=== PATIENT | female | born 1960 | race Caucasian/White ===

== ENCOUNTER 2019-12-19 10:25 | Outpatient (CLI) | payer MEDICARE, MEDICAID, SELFPAY ==
--- NOTE | 2019-12-19 10:36 | MM_ITS ---
WS: [id number] BILATERAL DIGITAL SCREENING MAMMOGRAPHY WITH CAD CLINICAL INFORMATION: SCREENING HISTORY: Screening mammogram. No current complaints. COMPARISON: and October 26, 2018 TECHNIQUE: Bilateral CC and MLO views. FINDINGS: The breasts are composed of heterogeneous fibroglandular density tissue, which can limit the detectio n of small underlying mass lesions. No suspicious mass, asymmetry, calcifications, or architectural d istortion. No evidence of malignancy. MM/[id number] IMPRESSION: BI-RADS: 1-Negative FOLLOW UP: 1 Year Follow-up Recommend return to annual screening mammography.
== END 2019-12-19 10:26 | disposition home or self-care (01) ==
LOC: RADSHAW 10:33
PROVIDERS: PCP Family Medicine; Visit Provider Family Medicine
DX: Z12.31 Encounter for screening mammogram for malignant neoplasm of breast (principal)
CPT/HCPCS: 77067

== ENCOUNTER 2020-01-19 21:20 | Emergency (ER) | payer MEDICARE, MEDICAID, SELFPAY ==
[2020-01-19 21:39] VITALS: BP 115/81; PULSE 72; RESP 16; TEMP 36.8; O2SAT 96; BMI 29.9
[2020-01-19 22:05] LABS: Bilirubin Urine Neg (NEGATIVE); Blood Urine Neg (Negative); Glucose Urine UA Norm (Normal); Ketones Urine Negative (Negative); Leukocyte Esterase Urine Negative (Negative); Nitrate Urine Negative (Negative); Protein Urine Neg (Negative); Specific Gravity, Urine 1.005 (1.005-1.030); Sulfosalicylic Acid Urine Negative (Negative); Urine Appearance Clear (CLEAR); Urine Color Yellow (Yellow); Urobilinogen Urine Norm (Negative); pH Urine 8 (5-7)
[2020-01-19 22:07] LABS: Add Urine Culture? No; Bacteria Urine TRACE; WBC Urine 0-4 /hpf (0-5)
[2020-01-19 22:17] LABS: Basophils # 0.1 10^3/uL (0.0-0.1); Basophils % 0.7 %; Eosinophils # 0.1 10^3/uL (0.0-0.8); Eosinophils % 1.5 %; Hematocrit 43.7 % (37.0-47.0); Hemoglobin 13.6 g/dL (11.5-15.3); Lymphocytes # 2.2 10^3/uL (0.8-4.8); Lymphocytes % 29.3 %; Mean Corpuscular HGB Conc 31.1 g/dL (30.0-36.0); Mean Corpuscular Hemoglobin 28.8 pg (28.0-34.0); Mean Corpuscular Volume 92.4 fL (81-99); Mean Platelet Volume 10.4 fL (7.4-10.4); Monocytes # 0.7 10^3/uL (0.2-0.9); Neutrophils # 4.35 10^3/uL (1.8-7.7); Neutrophils % 59.1 %; Nucleated Red Blood Cells % 0 %; Platelet Count 256 10^3/cmm (130-400); Red Blood Count 4.73 10^6/uL (4.1-5.3); White Blood Count 7.4 10^3/uL (4.0-10.0)
[2020-01-19 22:34] LABS: Alanine Aminotransferase 7 U/L (0-33); Albumin Level 4.2 g/dL (3.5-5.2); Alkaline Phosphatase 95 IU/L (35-105); Anion Gap 13.1 (5-19); Aspartate Amino Transferase 15 U/L (0-32); Blood Urea Nitrogen 12 mg/dL (6-20); Calcium 9.6 mg/dL (8.5-10.5); Carbon Dioxide 26 mmol/L (22-29); Chloride 104 mmol/L (98-107); Globulin 2.5 g/dL (1.3-4.6); Glucose 112 mg/dL (65-115); Lipase 31 U/L (13-60); Osmolality Calculated 285 mOsm/kg (285-295); Potassium 4.1 mmol/L (3.5-5.1); Sodium 139 mmol/L (136-145); Total Bilirubin 0.2 mg/dL (0.15-1.2); Total Protein 6.7 g/dL (6.6-8.7)
[2020-01-19 22:38] LABS: HCG, Serum Qual Negative (Negative)
--- NOTE | 2020-01-19 23:03 | PC.NURSE ---
SPEAKING WITH PT IN LOBBY. PT IS IN NAD.
== END 2020-01-19 23:44 ==
LOC: ER 21:42
PROVIDERS: Emergency Medicine; Emergency Provider Physician Assistant; PCP Family Medicine
DX: Z53.21 Procedure and treatment not carried out due to patient leaving prior to being seen by health care provider (principal)
CPT/HCPCS: 80053; 81001; 83690; 84703; 85025; 99281; 99282

== ENCOUNTER 2020-01-20 13:42 | Emergency (ER) | payer MEDICARE, MEDICAID, SELFPAY ==
[2020-01-20 13:51] VITALS: BP 116/73; PULSE 96; RESP 18; TEMP 36.6; O2SAT 96; BMI 29.9
== END 2020-01-20 15:08 | disposition left against medical advice (07) ==
LOC: ER 13:53
PROVIDERS: Emergency Provider Family Medicine; PCP Family Medicine
DX: Z53.21 Procedure and treatment not carried out due to patient leaving prior to being seen by health care provider (principal)
CPT/HCPCS: 99281

== ENCOUNTER 2020-05-24 12:06 | Outpatient (CLI) | payer MEDICARE, MEDICAID, SELFPAY ==
--- NOTE | 2020-05-24 12:31 | XR_ITS ---
WS: [id number] XR chest 2V* [id number] REASON FOR EXAM: COUGH FINDINGS: Chest is unchanged compared to 09/23/2017. The heart and the mediastinum are within normal limits. Calcified granulomatous changes in both hemithoraces. No active pulmonary parenchymal or pleural disease. Mild to moderate degenerative changes in the mid and lower thoracic spine and both shoulder joints. XR/XR chest 2V* [id number] IMPRESSION: No acute chest abnormality.
== END 2020-05-24 12:07 | disposition home or self-care (01) ==
PROVIDERS: PCP Nurse Practitioner Family; Visit Provider Nurse Practitioner Family
DX: R05 Cough (principal)
CPT/HCPCS: 71046

== ENCOUNTER 2020-06-30 09:11 | Emergency (ER) | payer MEDICARE, MEDICAID, SELFPAY ==
[2020-06-30 09:25] VITALS: BP 159/44; PULSE 82; RESP 18; TEMP 36.5; O2SAT 99; BMI 29.9
[2020-06-30 09:30] VITALS: BP 117/75; RESP 80; O2SAT 95
--- NOTE | 2020-06-30 09:37 | W.ED.URI ---
HPI - URI/Sore Throat General: Chief Complaint: Upper Respiratory Infection Stated Complaint: head congestion, hard to breath Time Seen by Provider: 06/30/20 09:29 Source: patient Limitations: no limitations History of Present Illness: HPI Narrative: Patient with cough and congestion and sinus pain and pressure x1 day. Has a history of recurrent bronchitis and sinusitis. Has already had COVID-19 back in March. No fever or shortness of breath. MD elicited complaint: cough, sore throat, rhinorrhea, nasal congestion and sinus pain Associated symptoms: Reports nasal congestion; Deny abdominal pain, chills, chest pain, diarrhea, fever(s), headache(s), nausea or vomiting Review of Systems General: Reports: 10 or more systems reviewed and unremarkable except in HPI and below Const: Denies: fever(s), chills or body aches Eyes: Denies: change in vision ENMT: Reports: throat pain, nasal congestion and post nasal drip; Denies: enlarged tonsils or odynophagia Card: Denies: chest pain Resp: Reports: non-productive cough; Denies: dyspnea GI: Denies: abdominal pain, nausea, vomiting or diarrhea : Denies: flank pain or difficulty voiding Musc: Denies: neck pain or back pain Skin/Breast: Denies: rash Neuro: Denies: headache(s) Psych: Denies: anxiety PFSH ED PFSH: Social History Smoking and tobacco status: current every day smoker Physical Exam Const: COMMON NORMALS: no acute distress, average body habitus, patient oriented x3, no limitations, healthy appearing, alert and well nourished HENMT: COMMON NORMALS: TM's normal bilaterally and Normal external nose present HEAD & SCALP: normal to inspection FACE & SINUS: Facial tenderness on exam of face and sinuses NOSE: Normal external nose present TYMPANIC MEMBRANE: TM's normal bilaterally Eye: COMMON NORMALS: Equal, round and reactive pupils present, EOMs intact bilaterally, conjunctivae normal, no scleral icterus, no papilledema, normal visual jaramillo by confrontation and fundi normal bilaterally CONJUNCTIVA: Yes conjunctivae normal PUPIL: Yes Equal, round and reactive pupils present DIRECT OPHTHALMOSCOPY: Yes no papilledema and Yes fundi normal bilaterally Neck/C-Spine: COMMON NORMALS: full ROM, no lymphadenopathy, supple, no meningeal signs, Thyroid normal and No carotid bruits THYROID: Thyroid normal Chest: COMMONS NORMALS: normal inspection of the chest, normal palpation of entire chest wall, normal inspection of the breasts and normal palpation of the breasts Breast/axilla inspection: Yes normal inspection of the breasts BREAST/AXILLA PALPATION: Yes normal palpation of the breasts Resp: COMMON NORMALS: normal respiratory effort, No retractions, No use of accessory muscles, clear to auscultation bilaterally and percussion normal AUSCULTATION: clear to auscultation bilaterally PERCUSSION: percussion normal GI: COMMON NORMALS: Normal to inspection, nondistended, normoactive bowel sounds present, Soft to palpation, non-tender, No hepatosplenomegaly present, no masses and no bruits PALPATION: Yes Soft to palpation and Yes No hepatosplenomegaly present Neuro: COMMON NORMALS: patient oriented x3 SENSORIUM/ORIENTATION: Yes alert MENINGEAL SIGNS: Yes no meningeal signs Course Vital Signs: Vital signs: Vital Signs Temperature 97.7 F 06/30/20 09:25 Pulse Rate 82 06/30/20 09:25 Respiratory Rate 80 H 06/30/20 09:30 Blood Pressure 117/75 06/30/20 09:30 Pulse Oximetry 95 06/30/20 09:30 MDM - URI/Sore Throat MDM Narrative: Medical decision making narrative: Patient with URI. Will treat with prednisone and azithromycin. Does not appear to be septic or dehydrated. No respiratory distress. Discharge Plan Discharge Patient Disposition: Home Clinical Impression: Upper respiratory infection Qualifiers: URI type: unspecified URI Qualified Code(s): J06.9 - Acute upper respiratory infection, unspecified Condition: Stable Prescriptions: New azithromycin 250 mg tablet See Rx Instructions .ROUTE .COMPLEX Qty: 6 RF: 0 prednisone 20 mg tablet 20 mg PO BID 5 Days Qty: 10 RF: 0 No Action levothyroxine 75 mcg tablet 75 mcg PO DAILY RF: 0 omeprazole 10 mg capsule,delayed release(DR/EC) 10 mg PO DAILY RF: 0 doxycycline hyclate 100 mg capsule 100 mg PO BID 10 Days Qty: 20 RF: 0 Discharge Orders: Discharge ED (Routine); Ordered 06/30/20 Ordered By: Kirk Traore Referrals: Sandhya,Marcella R, PRODUCTION MACHINE TENDER [Primary Care Provider] - Coding Level of Care Code ED Potato Peeling Machine Operator for Chg Fwd Exam Detailed
[2020-06-30 09:51] VITALS: BP 110/79; PULSE 84; RESP 17; O2SAT 97
== END 2020-06-30 09:51 | disposition home or self-care (01) ==
PROVIDERS: Emergency Provider Emergency Medicine; PCP Nurse Practitioner Family
DX: J06.9 Acute upper respiratory infection, unspecified (principal); F17.200 Nicotine dependence, unspecified, uncomplicated; Z86.16 Personal history of COVID-19
CPT/HCPCS: 12345; 99281; 99282; 99283

== ENCOUNTER → 2020-08-05 10:51 | Outpatient (BNVA) | payer MEDICARE, MEDICAID, SELFPAY | PROVIDERS: PCP Nurse Practitioner Family; Visit Provider Nurse Practitioner | DX: J02.9 Acute pharyngitis, unspecified (principal); J06.9 Acute upper respiratory infection, unspecified; Z68.34 Body mass index [BMI] 34.0-34.9, adult; F17.210 Nicotine dependence, cigarettes, uncomplicated | CPT/HCPCS: 87071; 87880 ==

== ENCOUNTER 2020-12-19 07:31 | Outpatient (CLI) | payer MEDICARE, MEDICAID, SELFPAY ==
--- NOTE | 2020-12-19 07:38 | MM_ITS ---
WS: [id number] BILATERAL SCREENING DIGITAL MAMMOGRAM WITH CAD HISTORY: SCREENING COMPARISON: 12/19/2019 and 10/26/2018 Bilateral CC and MLO views submitted. Computer aided detection analyzed. Breast composition: There are scattered areas of fibroglandular density. No suspicious masses, microc alcifications or architectural distortion. MM/[place] [id number] IMPRESSION: BI-RADS: 1-Negative FOLLOW UP: 1 Year Follow-up
== END 2020-12-19 07:32 | disposition home or self-care (01) ==
LOC: RADSHAW 07:36
PROVIDERS: PCP Nurse Practitioner Family; Visit Provider Nurse Practitioner Family
DX: Z12.31 Encounter for screening mammogram for malignant neoplasm of breast (principal)
CPT/HCPCS: 77067

== ENCOUNTER 2021-12-19 08:09 | Outpatient (CLI) | payer MEDICARE, MEDICAID, SELFPAY ==
--- NOTE | 2021-12-19 08:20 | MM_ITS ---
WS: [id number] Bilateral screening 3D tomosynthesis digital mammogram, 12/19/2021 Clinical Data: SCREENING Comparison: 12/19/2020 12/19/2019, 11/18/2018, 10/26/2018, 10/25/2017, 10/03/2013, 09/28/2012.. Findings: The breast parenchymal pattern shows fibroglandular tissue. No spiculated masses or clustered calcifi cations are seen. There are no secondary signs of carcinoma. There are lymph nodes in both axilla. MM/[place] [id number] Impression: 1. Negative bilateral mammogram unchanged. 2. Recommend annual screening mammograms. BIRADS: 1-Negative FOLLOW UP: 1 Year Follow-up The CAD construction checker was used.
== END 2021-12-19 08:10 | disposition home or self-care (01) ==
LOC: RADSHAW 08:10
PROVIDERS: PCP Nurse Practitioner Family; Visit Provider Nurse Practitioner Family
DX: Z12.31 Encounter for screening mammogram for malignant neoplasm of breast (principal)
CPT/HCPCS: 77063; 77067

== ENCOUNTER 2021-12-20 10:47 | Emergency (ER) | payer MEDICARE, MEDICAID, SELFPAY ==
[2021-12-20 11:02] VITALS: BP 132/84; PULSE 92; RESP 17; O2SAT 97
--- NOTE | 2021-12-20 11:03 | W.ED.ABDPA2 ---
HPI - Abdominal Pain General: Chief Complaint: Back Pain/Injury Stated Complaint: abd pain Time Seen by Provider: 12/20/21 11:03 History of Present Illness: Ms. Wood is a 61-year-old lady with history of GERD and chronic constipation who presents to the emergency department due to back and abdominal pain. Onset of symptoms was approximately 2 days ago without known specific provoking event. Since that time she has had intermittent worsening intensity of mild back pain. She has nausea but no associated vomiting. She denies urinary symptoms. Constipation is baseline with normal bowel movement yesterday morning. She denies fevers, chills, or other evidence of infection. Overall course of symptoms has persisted. No other specific changes in health, exacerbating, or alleviating factors identified. Patient has somewhat odd affect. Patient only reports taking 1 tab of Tylenol and is out of ibuprofen which normally improves symptoms. When discussing potential pain treatments in the ER the patient declined saying she does not want any of that in her body . Onset (ago): day(s) Pain Consistency: intermittent Location: Diffuse Severity: moderate Quality: cramping and aching Exacerbating factors: nothing Relieving factors: nothing Associated Symptoms: Reports nausea Review of Systems General: Reports: 10 or more systems reviewed and unremarkable except in HPI and below GI: Reports: nausea PFSH ED PFSH: Medical History History of gastroesophageal reflux (GERD) Surgical History History of partial hysterectomy Social History Smoking and tobacco status: current every day smoker cigarettes Packs smoked per day: 0.75 Years cigarettes smoked: 41 Alcohol intake: never Physical Exam Const: COMMON NORMALS: alert GENERAL APPEARANCE: cooperative and well developed HENMT: COMMON NORMALS: normocephalic and atraumatic HEAD & SCALP: normocephalic and atraumatic Eye: COMMON NORMALS: conjunctivae normal CONJUNCTIVA: Yes conjunctivae normal SCLERA: sclerae normal Neck/C-Spine: COMMON NORMALS: supple GENERAL: Yes trachea midline Resp: COMMON NORMALS: normal respiratory effort and clear to auscultation bilaterally EFFORT & INSPECTION: Yes able to speak in complete sentences AUSCULTATION: clear to auscultation bilaterally Cardio: COMMON NORMALS: regular rate and regular rhythm RATE: regular rate RHYTHM: regular rhythm GI: COMMON NORMALS: Soft to palpation PALPATION: Yes Soft to palpation, Yes Tenderness to palpation present (GI), No Guarding due to palpation present (GI), No Rigid due to palpation and No Rebound tenderness present Extremity: GENERAL: Yes normal exam except as noted and No edema Neuro: COMMON NORMALS: moves all extremities SENSORIUM/ORIENTATION: Yes alert and No Orientation impaired Psych: COMMON NORMALS: mental status grossly normal and Normal thought process present THOUGHT PROCESS: Normal thought process present Course ED course: - Patient was seen and evaluated by me at bedside - Patient placed on cardiac monitors, IV access obtained - Initial evaluation notable for exam as above - Labs personally interpreted by me - Antiemetic given - Labs notable for no significant electrolyte or metabolic abnormality, mild elevation ALT and alk phos of unclear etiology. No evidence of urinary tract infection. - Imaging notable for no acute inflammatory process of abdomen or pelvis to explain pain. Patient does have constipation as well as some mesenteric edema suggesting chronic inflammatory process. - Discussed case with general surgery as I was unsure of likely follow-up. Plan to follow-up with rheumatology and further referral to surgery if needed however this is not a condition that he has run into before - Upon serial reexamination after treatment the patient was improved - Based on patient history, evaluation, and testing as interpreted the most likely cause of the patient's condition is abdominal pain with constipation and some mesenteric edema with possible chronic inflammatory condition which was discussed with the patient - The results of ED evaluation were discussed with the patient including prescriptions and/or symptomatic cares (if applicable) including appropriate and responsible use, followup plan, and return precautions. The patient verbalized understanding and felt safe for discharge. - Patient discharged in satisfactory condition. Note: Click bubbles or prepopulated jaramillo in note writing are used for assistance with data collection and billing and are inherently more limited than narrative and other text portions of this note. Please use narrative for additional clinical history and defer to narrative/free test for any case of contradictory information. If information appears in only free text or click bubble it should be considered present or absent as reported. Please contact note data analyst report writer for clarifications of clinical information or contradictory information. MDM is a brief summary, contradictory or erroneous seeming information should be clarified and full note should be reviewed. Vital Signs: Vital signs: Vital Signs Pulse Rate 73 07/16/22 13:46 Respiratory Rate 14 12/20/21 13:46 Blood Pressure 118/76 12/20/21 13:46 Pulse Oximetry 96 12/20/21 13:46 Oxygen Delivery Me thod 12/20/21 13:46 MDM - Abdominal Pain Medical Decision Making 61-year-old lady presenting with abdominal pain. No evidence of acute surgical abdomen on exam, patient is nontoxic in appearance. Labs fairly unremarkable. CT with evidence of constipation and some mesenteric edema of uncertain etiology. After treatment with antiemetic patient felt improved and was able to tolerate p.o. intake. Satisfactory for outpatient management. Medical Records I reviewed the patient's medical records. Lab Data I reviewed the patient's lab results. : 12/20/21 11:25 12/20/21 11:25 Labs/Radiology: Radiology Impressions Abdomen/Pelvis CT 12/20/21 12:13 IMPRESSION: 1. Negative for acute inflammatory process in the abdomen or pelvis. 2. Constipation. 3. Several prominent subcentimeter upper abdominal mesenteric lymph nodes with some mesenteric edema suggestive of a chronic inflammatory process such as sclerosing mesenteritis. Laboratory Results WBC 7.0 10^3/uL (4.0-10.0) 12/20/21 11:25 RBC 4.96 10^6/uL (4.1-5.3) 12/20/21 11:25 Hgb 14.8 g/dL (11.5-15.3) 12/20/21 11:25 Hct 44.3 % (37.0-47.0) 12/20/21 11:25 MCV 89.3 fl (81-99) 12/20/21 11:25 MCH 29.8 pg (28.0-34.0) 12/20/21 11:25 MCHC 33.4 g/dL (30.0-36.0) 12/20/21 11:25 RDW 12.7 % (12.1-15.1) 12/20/21 11:25 Plt Count 262 10^3/cmm (130-400) 12/20/21 11:25 MPV 11.1 fL (7.4-10.4) H 12/20/21 11:25 Neut % (Auto) 58.1 % 12/20/21 11:25 Lymph % (Auto) 32.1 % 12/20/21 11:25 Henry % (Auto) 7.6 % 12/20/21 11:25 Eos % (Auto) 1.3 % 12/20/21 11:25 Baso % (Auto) 0.6 % 12/20/21 11:25 Neut # (Auto) 4.06 10^3/uL (1.8-7.7) 12/20/21 11:25 Lymph # (Auto) 2.2 10^3/uL (0.8-4.8) 12/20/21 11:25 Henry # (Auto) 0.5 10^3/uL (0.2-0.9) 12/20/21 11:25 Eos # (Auto) 0.1 10^3/uL (0.0-0.8) 12/20/21 11:25 Baso # (Auto) 0.0 10^3/uL (0.0-0.1) 12/20/21 11:25 Nucleated RBC % (auto) 0 % 12/20/21 11:25 Nucleated RBCs # 0.0 /100WBC 12/20/21 11:25 Sodium 140 mmol/L (136-145) 12/20/21 11:25 Potassium 3.9 mmol/L (3.5-5.1) 12/20/21 11:25 Chloride 104 mmol/L (98-107) 12/20/21 11:25 Carbon Dioxide 25 mmol/L (22-29) 12/20/21 11:25 Anion Gap 14.9 (5-19) 12/20/21 11:25 BUN 10 mg/dL (6-20) 12/20/21 11:25 Creatinine 0.5 mg/dL (0.5-0.9) 12/20/21 11:25 GFR Calculation 126.3 mL/min (90-130) 12/20/21 11:25 Glucose 140 mg/dL (65-115) H 12/20/21 11:25 Calculated Osmolality 291 mOsm/kg (285-295) 12/20/21 11:25 Lactate 1.2 mmol/L (0.5-2.2) 12/20/21 11:25 Calcium 9.5 mg/dL (8.5-10.5) 12/20/21 11:25 Total Bilirubin 0.3 mg/dL (0.15-1.2) 12/20/21 11:25 AST 25 U/L (0-32) 12/20/21 11:25 ALT 34 U/L (0-33) H 12/20/21 11:25 Alkaline Phosphatase 110 IU/L (35-105) H 12/20/21 11:25 Total Protein 6.9 g/dL (6.6-8.7) 12/20/21 11:25 Albumin 4.2 g/dL (3.5-5.2) 12/20/21 11:25 Globulin 2.7 g/dL (1.3-4.6) 12/20/21 11:25 Lipase 21 U/L (13-60) 12/20/21 11:25 Urine Color Yellow (Yellow) 12/20/21 11:10 Urine Appearance Clear (CLEAR) 12/20/21 11:10 Urine pH 5 (5-7) 12/20/21 11:10 Ur Specific Irons 1.015 (1.005-1.030) 12/20/21 11:10 Urine Protein Neg (Negative) 12/20/21 11:10 Urine Glucose (UA) Norm (Normal) 12/20/21 11:10 Urine Ketones Negative (Negative) 12/20/21 11:10 Urine Blood Neg (Negative) 12/20/21 11:10 Urine Nitrate Negative (Negative) 12/20/21 11:10 Urine Bilirubin Neg (Negative) 12/20/21 11:10 Urine Urobilinogen 4 mg/dL (Negative) H 12/20/21 11:10 Ur Leukocyte Esterase Negative (Negative) 12/20/21 11:10 Discharge Plan Discharge Patient Disposition: Home Clinical Impression: Abdominal pain, Back pain, Constipation Condition: Stable Prescriptions: No Action simvastatin 10 mg tablet 10 mg PO DAILY aspirin [Adult Aspirin Regimen] 81 mg tablet,delayed release (DR/EC) 81 mg PO DAILY levothyroxine 75 mcg tablet 75 mcg PO DAILY omeprazole 10 mg capsule,delayed release(DR/EC) 10 mg PO DAILY sulfamethoxazole-trimethoprim [Bactrim DS] 800-160 mg tablet 1 tab PO BID 7 Days Qty: 14 0RF mupirocin 2 % ointment 1 applic topical BID Qty: 15 0RF Discharge Orders: Discharge ED (Routine); Ordered 12/20/21 Ordered By: Nahun Israel Referrals: Marcella Arthur, ACCOUNT MANAGER TRAINEE [Primary Care Provider] - Discharge Diet: Advance as tolerated and Clear Liquid Discharge Activity: Increase activity as tolerated Patient Instructions: Abdominal Pain (ED) Activity Restrictions/Additional Instructions: Thank you for visiting the emergency department. You were seen and evaluated for abdominal pain and back pain. The exact cause your symptoms is unclear. You were noted to have continued constipation. Additionally, as discussed, you have inflammation of the mesentery and enlarged lymph nodes which may reflect chronic inflammatory condition such as sclerosing mesenteritis. I will message case management for referral to rheumatology. Please also follow-up with your primary care provider. Please return to the emergency department for uncontrolled pain, inability to have bowel movements, inability to tolerate p.o. intake, or anything else that you are concerned about and feel needs emergency department evaluation. For your constipation I recommend MiraLAX 1 packet or capful 3 times daily for the next 3 days followed by daily use for goal multiple bowel movements today which are soft in consistency. If this fails to improve symptoms you may use magnesium citrate. Please ensure that you are staying hydrated. Coding Level of Care Code ED Hemodialysis Charge Nurse for Chg Fwd Exam Comprehensive
[2021-12-20 11:31] LABS: Add Urine Microscopic? NO; Charge for UA Resulting for Rev
[2021-12-20 11:35] LABS: Basophils % 0.6 %; Eosinophils # 0.1 10^3/uL (0.0-0.8); Eosinophils % 1.3 %; Hematocrit 44.3 % (37.0-47.0); Hemoglobin 14.8 g/dL (11.5-15.3); Lymphocytes # 2.2 10^3/uL (0.8-4.8); Lymphocytes % 32.1 %; Mean Corpuscular HGB Conc 33.4 g/dL (30.0-36.0); Mean Corpuscular Hemoglobin 29.8 pg (28.0-34.0); Mean Corpuscular Volume 89.3 fl (81-99); Mean Platelet Volume 11.1 fL (7.4-10.4); Monocytes # 0.5 10^3/uL (0.2-0.9); Monocytes % 7.6 %; Neutrophils # 4.06 10^3/uL (1.8-7.7); Neutrophils % 58.1 %; Nucleated Red Blood Cells % 0 %; Platelet Count 262 10^3/cmm (130-400); Red Blood Count 4.96 10^6/uL (4.1-5.3); Red Cell Distribution Width 12.7 % (12.1-15.1)
[2021-12-20] MEDS: ondansetron 4 MG Tablet PO (11:38)
[2021-12-20 11:42] VITALS: BP 115/81; PULSE 72; RESP 14; O2SAT 91
[2021-12-20 11:49] LABS: Lactate (Lactic Acid level) 1.2 mmol/L (0.5-2.2)
[2021-12-20 11:56] LABS: Alanine Aminotransferase 34 U/L (0-33); Albumin Level 4.2 g/dL (3.5-5.2); Alkaline Phosphatase 110 IU/L (35-105); Anion Gap 14.9 (5-19); Aspartate Amino Transferase 25 U/L (0-32); Blood Urea Nitrogen 10 mg/dL (6-20); Calcium 9.5 mg/dL (8.5-10.5); Carbon Dioxide 25 mmol/L (22-29); Chloride 104 mmol/L (98-107); Globulin 2.7 g/dL (1.3-4.6); Glomerular Filtration Rate 126.3 mL/min (90-130); Glucose 140 mg/dL (65-115); Lipase 21 U/L (13-60); Osmolality Calculated 291 mOsm/kg (285-295); Potassium 3.9 mmol/L (3.5-5.1); Sodium 140 mmol/L (136-145); Total Bilirubin 0.3 mg/dL (0.15-1.2); Total Protein 6.9 g/dL (6.6-8.7)
[2021-12-20 11:59] LABS: Bilirubin Urine Neg (Negative); Blood Urine Neg (Negative); Glucose Urine UA Norm (Normal); Ketones Urine Negative (Negative); Leukocyte Esterase Urine Negative (Negative); Nitrate Urine Negative (Negative); Protein Urine Neg (Negative); Specific Gravity, Urine 1.015 (1.005-1.030); Urine Appearance Clear (CLEAR); Urine Color Yellow (Yellow); Urobilinogen Urine 4 mg/dL (Negative); pH Urine 5 (5-7)
[2021-12-20 12:12] VITALS: BP 112/70; PULSE 68; RESP 14; O2SAT 96
--- NOTE | 2021-12-20 12:13 | CTR_ITS ---
PROCEDURE INFORMATION: Exam: CT Abdomen And Pelvis Without Contrast Exam date and time: 12/20/2021 12:46 PM Age: 61 years old Clinical indication: Abdominal pain and other: Lower back pain; Localized; Right lower quadrant (rlq); Additional info: Flank and abdominal pain TECHNIQUE: Imaging protocol: Computed tomography of the abdomen and pelvis without contrast. Radiation optimization: All CT scans at this facility use at least one of these dose optimization techniques: automated exposure control; mA and/or kV adjustment per patient size (includes targeted exams where dose is matched to clinical indication); or iterative reconstruction. COMPARISON: CR XR KUB [id number] 10/08/2018 4:32 PM RADIATION DOSE METRICS: Total DLP (mGy-cm): 1216.7 FINDINGS: Liver: Normal. No mass. Gallbladder and bile ducts: Normal. No calcified stones. No ductal dilation. Pancreas: Normal. No ductal dilation. Spleen: Normal. No splenomegaly. Adrenal glands: Normal. No mass. Kidneys and ureters: Normal. No hydronephrosis. Stomach and bowel: Constipation. Appendix: No evidence of appendicitis. Intraperitoneal space: Unremarkable. No free air. No significant fluid collection. Vasculature: Unremarkable. No abdominal aortic aneurysm. Lymph nodes: Several prominent subcentimeter upper abdominal mesenteric lymph nodes with some mesenteric edema suggestive of a chronic inflammatory process such as sclerosing mesenteritis. Urinary bladder: Unremarkable as visualized. Reproductive: Unremarkable as visualized. Bones/joints: Unremarkable. No acute fracture. Soft tissues: Unremarkable. CT/CT abdomen pelvis [place] [id number] IMPRESSION: 1. Negative for acute inflammatory process in the abdomen or pelvis. 2. Constipation. 3. Several prominent subcentimeter upper abdominal mesenteric lymph nodes with some mesenteric edema suggestive of a chronic inflammatory process such as sclerosing mesenteritis.
[2021-12-20 13:12] VITALS: BP 127/73; PULSE 75; RESP 14; O2SAT 94
[2021-12-20 13:46] VITALS: BP 118/76; PULSE 73; RESP 14; O2SAT 96
--- NOTE | 2021-12-22 11:41 | DCPLANNER ---
Addendum entered by Sivan Jackson 02/05/22 08:25: architectural project manager received notification that patient would need to be referred to general surgery. architectural project manager referred patient to general surgery. Patient was seen in 02.04.[address] Martinez - patient did attend appointment. Original Note: architectural project manager had message to schedule a follow up appointment for patient with rheumatology. architectural project manager sent patients information to the front office staff at rheumatology. Patients information will be printed and reviewed. Clinic will call patient with appointment information.
== END 2021-12-20 13:48 | disposition home or self-care (01) ==
PROVIDERS: Emergency Provider Emergency Medicine; PCP Nurse Practitioner Family
DX: K59.00 Constipation, unspecified (principal); M54.9 Dorsalgia, unspecified; Z79.82 Long term (current) use of aspirin; F17.210 Nicotine dependence, cigarettes, uncomplicated
CPT/HCPCS: 74176; 80053; 81003; 83605; 83690; 85025; 96374; 99285; Q0162

== ENCOUNTER → 2022-02-04 07:37 | Outpatient (BNVA) | payer MEDICARE, MEDICAID, SELFPAY | PROVIDERS: PCP Nurse Practitioner Family; Visit Provider Surgery | DX: K65.4 Sclerosing mesenteritis (principal) | CPT/HCPCS: 99203 ==

== ENCOUNTER → 2022-05-23 16:39 | Outpatient (BNVA) | payer MEDICARE, MEDICAID, SELFPAY | PROVIDERS: PCP Nurse Practitioner Family; Visit Provider Nurse Practitioner Family | DX: J06.9 Acute upper respiratory infection, unspecified (principal) | CPT/HCPCS: 87400 ==

== ENCOUNTER → 2022-11-17 14:57 | Outpatient (BNVA) | payer MEDICARE, MEDICAID, SELFPAY | PROVIDERS: PCP Nurse Practitioner Family; Visit Provider Podiatrist Foot & Ankle Surgery | DX: L60.0 Ingrowing nail (principal); L60.3 Nail dystrophy; L60.8 Other nail disorders | CPT/HCPCS: 11750; 99203; A6219 ==

== ENCOUNTER → 2022-12-01 07:44 | Outpatient (BNVA) | payer MEDICARE, MEDICAID, SELFPAY | PROVIDERS: PCP Nurse Practitioner Family; Visit Provider Podiatrist Foot & Ankle Surgery | DX: L60.0 Ingrowing nail (principal) | CPT/HCPCS: 99213 ==

== ENCOUNTER 2022-12-21 08:54 | Outpatient (CLI) | payer MEDICARE, MEDICAID, SELFPAY ==
--- NOTE | 2022-12-21 09:04 | MM_ITS ---
WS: [id number] VIEWS: MLO and CC views both breasts. 3D digital tomosynthesis is also included in this exam. Comparison made with prior exam of 10/25/2017, 10/26/2018, 09/22/2019, 09/19/2020, 12/19/2021.. Findings: There was no sign of mass, architectural distortion or suspicious calcification in either breast. Th ere are scattered areas of fibroglandular density. MM/[place] [id number] Impression: BI-RADS: 2-Benign finding. FOLLOW-UP: 1 Year Follow-up This mammogram was also analyzed by the Computer Aided Detection System R2 Imag e Camp Program Director.
== END 2022-12-21 08:55 | disposition home or self-care (01) ==
LOC: RAD 08:57
PROVIDERS: PCP Nurse Practitioner Family; Visit Provider Nurse Practitioner Family
DX: Z12.31 Encounter for screening mammogram for malignant neoplasm of breast (principal)
CPT/HCPCS: 77063; 77067

== ENCOUNTER 2023-06-08 10:16 | Outpatient (CLI) | payer MEDICARE, MEDICAID, SELFPAY ==
--- NOTE | 2023-06-08 10:20 | XRR_ITS ---
PROCEDURE INFORMATION: Exam: XR Chest Exam date and time: 06/08/2023 10:26 AM Age: 62 years old Clinical indication: Dyspnea and shortness of breath TECHNIQUE: Imaging protocol: Radiologic exam of the chest. Views: 2 views. COMPARISON: CR XR chest 2V* [id number] 05/24/2020 12:35 PM FINDINGS: Lungs: There is bilateral central peribronchial thickening. This could be an acute viral or atypical pneumonia. Bronchitis could have this appearance. Acute or chronic asthma could have this appearance. Pleural spaces: Unremarkable. No pleural effusion. No pneumothorax. Heart/Mediastinum: Unremarkable. No cardiomegaly. Bones/joints: Mild scoliosis with mild multilevel spondylosis. Pectus excavatum. XR/XR chest 2V* [id number] IMPRESSION: There is bilateral central peribronchial thickening. This could be an acute viral or atypical pneumonia. Bronchitis could have this appearance. Acute or chronic asthma could have this appearance.
== END 2023-06-08 10:17 | disposition home or self-care (01) ==
LOC: RAD 10:16
PROVIDERS: PCP Nurse Practitioner Family; Visit Provider Nurse Practitioner Family
DX: R06.02 Shortness of breath (principal); R91.8 Other nonspecific abnormal finding of lung field
CPT/HCPCS: 71046

== ENCOUNTER 2023-12-24 08:17 | Outpatient (CLI) | payer MEDICARE, MEDICAID, SELFPAY ==
--- NOTE | 2023-12-24 08:23 | MM_ITS ---
WS: [id number] Screening mammogram, tomosynthesis, 12/24/2023 Clinical data: Screening Comparison: 12/19/2021, 12/19/2020, 12/19/2019, 11/18/2018 Findings: No spiculated masses or clustered calcifications are seen. There are no secondary signs of carcin contreras. The breast parenchymal pattern shows fibroglandular tissue. MM/[place] [id number] Impression: 1. Negative bilateral mammograms unchanged 2. Recommend yearly screening mammograms BIRADS: 1 Follow up: 1 year
== END 2023-12-24 08:18 | disposition home or self-care (01) ==
LOC: RAD 08:17
PROVIDERS: PCP Nurse Practitioner Family; Visit Provider Nurse Practitioner Family
DX: Z12.31 Encounter for screening mammogram for malignant neoplasm of breast (principal); R92.323 Mammographic fibroglandular density, bilateral breasts
CPT/HCPCS: 77063; 77067

== ENCOUNTER 2024-01-21 08:03 | Outpatient (CLI) | payer MEDICARE, MEDICAID, SELFPAY ==
--- NOTE | 2024-01-21 08:11 | XR_ITS ---
WS: [id number] Examination: XR hip LT 2-3V wo/w pel* [id number] Reason for Exam: L HIP PAIN Date: January 21, 2024 Comparison: None. Findings: The bone density is maintained. There is no destruction There is no fracture or dislocation. The joint space is maintained. XR/XR hip LT 2-3V wo/w pel* [id number] Impression: No displaced fracture is identified.
--- NOTE | 2024-01-21 08:11 | XR_ITS ---
WS: [id number] Examination: XR ankle LT min 3V* [id number] Reason for Exam: L ANKLE PAIN Date: January 21, 2024 Comparison: None. Findings: There is mild soft tissue swelling. The bone density is maintained There is no displaced fracture or dislocation Mild calcaneal spurring at the attachment of the Achilles is identified. XR/XR ankle LT min 3V* [id number] Impression: There is soft tissue swelling. No displaced fracture is identified.
== END 2024-01-21 08:04 | disposition home or self-care (01) ==
LOC: RAD 08:09
PROVIDERS: PCP Nurse Practitioner Family; Visit Provider Nurse Practitioner Family
DX: M25.572 Pain in left ankle and joints of left foot (principal); M25.552 Pain in left hip
CPT/HCPCS: 73502; 73610

== ENCOUNTER 2024-04-13 13:55 | Outpatient (CLI) | payer MEDICARE, MEDICAID, SELFPAY ==
--- NOTE | 2024-04-13 14:28 | XR_ITS ---
WS: [id number] XR KUB [id number] REASON FOR EXAM: R FLANK PAIN FINDINGS: No free air or retroperitoneal air. Moderate amount of retained fecal material in the right and left colon and rectal vault. No significant small bowel distention. No urinary tract calculi identified. Moderate rotatory scoliosis and degenerative spondylosis in the lumbar spine. Mild osteoarthritis of the hips. XR/XR KUB [id number] IMPRESSION: No acute abnormality. No urinary tract calculi identified.
== END 2024-04-13 13:56 | disposition home or self-care (01) ==
PROVIDERS: PCP Nurse Practitioner Family; Visit Provider Nurse Practitioner Family
DX: R10.9 Unspecified abdominal pain (principal)
CPT/HCPCS: 74018

== ENCOUNTER 2024-12-25 07:55 | Outpatient (CLI) | payer MEDICARE, MEDICAID, SELFPAY ==
--- NOTE | 2024-12-25 | MM_ITS ---
WS: [id number] BILATERAL SCREENING DIGITAL TOMOSYNTHESIS MAMMOGRAM WITH CAD HISTORY: ANNUAL SCREENING COMPARISON: 12/24/2023, 12/21/2022, 12/19/2020 Bilateral CC and MLO views with tomosynthesis and synthetic mammography submitted. Computer aided detection analyzed. Breast composition: There are scattered areas of fibroglandular density. No suspicious masses, microcalcifications or architectural distortion. There are a few scattered asymmetries which are stable. MM/MM scr BI tomosynthesis [id number] IMPRESSION: BI-RADS: 2 - Benign. FOLLOW UP: 1 Year Follow-up
== END 2024-12-25 07:56 | disposition home or self-care (01) ==
LOC: RAD 07:57
PROVIDERS: PCP Nurse Practitioner Family; Visit Provider Nurse Practitioner Family
DX: Z12.31 Encounter for screening mammogram for malignant neoplasm of breast (principal); R92.323 Mammographic fibroglandular density, bilateral breasts; R92.8 Other abnormal and inconclusive findings on diagnostic imaging of breast
CPT/HCPCS: 77063; 77067